=== PATIENT | male | born 1950 | race Caucasian/White ===

== ENCOUNTER 2023-01-30 11:27 | Outpatient (CLI) | payer BC, SELFPAY ==
--- NOTE | 2023-01-30 11:45 | XR_ITS ---
WS: [id number] Chest 2 views, 01/30/2023 Clinical Data: hypoxia, productive cough, former smoker Comparison: None. Findings: No nodules, masses or effusions are seen. Both harry are prominent probably from pulmonary a rtery enlargement. The heart is normal. The pulmonary vascularity is not increased. No pneumonia or p neumothorax is seen. The aortic arch and descending thoracic aorta show calcification and mild tortuo sity. The diaphragms are flattened. XR/XR chest 2V* [id number] Impression: 1. Atherosclerosis and hyperinflation. 2. Probable pulmonary artery hypertension.
== END 2023-01-30 11:28 | disposition home or self-care (01) ==
PROVIDERS: PCP Family Medicine; Visit Provider Family Medicine
DX: R09.02 Hypoxemia (principal); R05.9 Cough, unspecified; Z87.891 Personal history of nicotine dependence; R91.8 Other nonspecific abnormal finding of lung field; I70.90 Unspecified atherosclerosis
CPT/HCPCS: 71046; 80053; 80061; 85025; J7613

== ENCOUNTER 2024-03-07 06:00 | Outpatient (CLI) | payer BC, SELFPAY | END 2024-03-07 06:01 | disposition home or self-care (01) | LOC: RAD 05-24 10:17 | PROVIDERS: PCP Family Medicine; Visit Provider Family Medicine | DX: Z00.00 Encounter for general adult medical examination without abnormal findings (principal); Z13.1 Encounter for screening for diabetes mellitus; Z13.6 Encounter for screening for cardiovascular disorders; R94.31 Abnormal electrocardiogram [ECG] [EKG] | CPT/HCPCS: 80053; 80061; 85007; 85025; 93005 ==

== ENCOUNTER → 2024-04-08 10:08 | Outpatient (BNVA) | payer BC, SELFPAY | PROVIDERS: PCP Family Medicine; Visit Provider Family Medicine | DX: D72.829 Elevated white blood cell count, unspecified (principal) | CPT/HCPCS: 80503; 85007; 85025 ==

== ENCOUNTER 2024-04-27 08:40 | Outpatient (CLI) | payer BC, SELFPAY ==
--- NOTE | 2024-04-27 09:00 | CT_ITS ---
WS: [id number] LDCT LUNG CANCER SCREENING HISTORY: lung cancer screening TECHNIQUE: Axial imaging performed from the apices to 1 cm below the costophrenic angles. Coronal and sagittal reformats are submitted with axial MIP series. All CT scans at [facility] use at least one of these dose optimization techniques: automated exposure control; mA and/or kV adjustment per patient size (includes targeted exams where dose is matched to clinical indication); or iterativ e reconstruction. DLP: 73.99 mGy.cm DIvol: Mean CTDIvol: 1.40 (mGy) COMPARISON: None available. Diagnostic quality: Satisfactory Lungs: Lungs are markedly hyperinflated with centrilobular emphysema. Numerous bilateral, lower lobe noncalcified pulmonary nodules are identified. These nodules are subcentimeter with the largest measu ring 6 mm at the RIGHT lung base, image 205 of series 4. There is an additional short RIGHT perifissu ral nodule. Heart: Normal size heart with no pericardial effusion.. Other findings: Pulmonary artery is dilated to 4.3 cm. Mild atherosclerosis aorta. Heavy calcificatio ns noted throughout the coronary arteries. No mediastinal or hilar adenopathy identified. The hilar r egions are poorly visualized without IV contrast. Small hiatal hernia. Bilateral adrenal adenomas. Th e largest on the RIGHT measures 2.2 x 1.7 cm. Visualized pancreas is mildly atrophic. No destructive bone lesions. CT/CT lung screening [id number] IMPRESSION: LUNG-RADS: 3S-Probably Benign with Significant Findings FOLLOW UP: 6 Month LDCT OTHER FINDINGS (S MODIFIER): Pulmonary hypertension. Extensive coronary artery calcifications. Bilateral adrenal adenomas.
--- NOTE | 2024-04-27 10:00 | USCV_ITS ---
Derrell Casas Age: 73 Gender: M : 1950 Exam Date: 04/27/2024 08:59 Ordering Phys: Julianne Kemp MD Technologist: BM [place] [facility] [place] HISTORY: Diameter (cm) AP x Transverse x Length Velocity (cm/s) Waveform Prox Aorta: 1.50 x 1.80 x 49.20 Triphasic Mid Aorta: 1.70 x 1.70 x 52.70 Triphasic Distal Aorta: 1.30 x 1.40 x 50.10 Triphasic Right Iliac Prox: 0.72 x 0.95 x 201.80 Triphasic Left Iliac Prox: 0.73 x 0.98 x 180.30 Triphasic Stent Prox Landing x x Aneurysmal Sac Max x x Lt Lat Sac Dim Rt Lat Sac Dim Stent Dist Landing x x Right Iliac Stent x x Left Iliac Stent x x Right Renal Art Left Renal Art FINDINGS: CONCLUSIONS No evidence of AAA or common iliac aneurysm Mild atheromatous disease Lorenzo Brunson MD (Electronically Signed) Final Date: 27 April 2024 10:23 S
== END 2024-04-27 08:41 | disposition home or self-care (01) ==
LOC: RAD 08:40
PROVIDERS: PCP Family Medicine; Visit Provider Family Medicine
DX: Z00.00 Encounter for general adult medical examination without abnormal findings (principal); Z87.891 Personal history of nicotine dependence; Z13.6 Encounter for screening for cardiovascular disorders; I70.90 Unspecified atherosclerosis; Z12.2 Encounter for screening for malignant neoplasm of respiratory organs; J43.2 Centrilobular emphysema; K44.9 Diaphragmatic hernia without obstruction or gangrene; I70.0 Atherosclerosis of aorta; D35.02 Benign neoplasm of left adrenal gland; D35.01 Benign neoplasm of right adrenal gland
CPT/HCPCS: 71271; 76706

== ENCOUNTER → 2024-05-18 11:18 | Outpatient (BNVA) | payer BC, SELFPAY | PROVIDERS: PCP Family Medicine; Visit Provider Family Medicine | DX: D72.829 Elevated white blood cell count, unspecified (principal) | CPT/HCPCS: 85007; 85025 ==

== ENCOUNTER 2024-06-30 07:24 | Oncology outpatient (recurring) (ONCR) | payer BC, SELFPAY ==
[2024-06-30 08:00] LABS: Basophils # 0.1 10^3/uL (0.0-0.1); Basophils % 0.6 %; Eosinophils # 0.1 10^3/uL (0.0-0.8); Eosinophils % 0.7 %; Hematocrit 51.4 % (37-53); Lymphocytes # 12.2 10^3/uL (0.8-4.8); Lymphocytes % 62.4 %; Mean Corpuscular HGB Conc 31.5 g/dL (30-55); Mean Corpuscular Volume 92.1 fl (82-101); Mean Platelet Volume 9.7 fL (7.4-10.4); Monocytes # 0.8 10^3/uL (0.2-0.9); Monocytes % 3.8 %; Neutrophils # 6.28 10^3/uL (1.8-7.7); Neutrophils % 31.9 %; Nucleated Red Blood Cells % 0 %; Platelet Count 161 10^3/cmm (157-399); Red Blood Count 5.58 10^6/uL (3.85-5.65); Red Cell Distribution Width 15.9 % (12.1-15.1); White Blood Count 19.62 10^3/uL (3.29-11.43)
[2024-06-30 08:28] LABS: Alanine Aminotransferase 11 U/L (0-41); Albumin Level 4.1 g/dL (3.5-5.2); Alkaline Phosphatase 88 U/L (40-130); Anion Gap 12.4 (5-19); Aspartate Amino Transferase 17 U/L (0-40); Blood Urea Nitrogen 18 mg/dL (8-23); Calcium 8.7 mg/dL (8.5-10.5); Carbon Dioxide 31 mmol/L (22-29); Chloride 101 mmol/L (98-107); Creatinine Clr Calc Pharmacy 82.9597; Globulin 2.4 g/dL (1.3-4.6); Glucose 116 mg/dL (65-115); Osmolality Calculated 293 mOsm/kg (285-295); Potassium 4.4 mmol/L (3.5-5.1); Sodium 140 mmol/L (136-145); Total Bilirubin 0.5 mg/dL (0.15-1.2); Total Protein 6.5 g/dL (6.6-8.7)
[2024-06-30 08:40] LABS: Erythrocyte Sedimentation Rate 8 mm/hr (0-10)
[2024-06-30 08:49] LABS: Lactate Dehydrogenase 195 U/L (135-225)
[2024-07-01 13:35] LABS: Leukemia Profile (BBPL) See Report
== END 2024-07-14 23:59 | disposition home or self-care (01) ==
PROVIDERS: PCP Family Medicine; Visit Provider Internal Medicine Hematology & Oncology
DX: D72.823 Leukemoid reaction (principal); D72.829 Elevated white blood cell count, unspecified; L02.224 Furuncle of groin; Z87.891 Personal history of nicotine dependence
CPT/HCPCS: 36415; 80053; 83615; 85025; 85651; 87070; 87075; 87205; 88184; 88185

== ENCOUNTER 2024-07-29 08:53 | Outpatient (CLI) | payer MEDICARE, SELFPAY ==
--- NOTE | 2024-07-29 08:56 | CT_ITS ---
WS: [id number] CT NECK WITH CONTRAST HISTORY: LOCALIZED ENLARGED LYMPH NODES TECHNIQUE: Contiguous 2 mm axial images are performed through the neck with intravenous contrast. Sag ittal and coronal reformats are also submitted. All CT scans at [facility] use at least one o f these dose optimization techniques: automated exposure control; mA and/or kV adjustment per patient size (includes targeted exams where dose is matched to clinical indication); or iterative reconstruc tion. CONTRAST: CONTRAST: Omnipaque 350; 100 mL IV. DLP: 280.90 mGy.cm COMPARISON: None available. Nasopharynx, oropharynx, hypopharynx and larynx are unremarkable. No soft tissue masses or abnormal e nhancement. Torus tubarius and fossa of Rosenmuller and parapharyngeal fat are normal. Small bilateral cervical chain lymph nodes are identified. These lymph nodes are normal size and shap e and enhancement. Thyroid gland and salivary glands are normally enhancing with no masses. No osseous abnormalities. Visualized portions of the skull base demonstrate no abnormalities. Orbits and globes are within norm al limits. No soft tissue masses. Visualized paranasal sinuses and mastoid air cells are normal. Lung apices are hyperexpanded with emphysema. Mild atherosclerosis aorta. Atherosclerotic plaque in t he cervical carotid arteries with a greater distribution through the cavernous carotid arteries, LEFT greater than RIGHT. CT/CT neck w con* [id number] IMPRESSION: 1. No cervical chain lymphadenopathy. There are small bilateral cervical chain lymph nodes which appear normal. 2. No neck mass.
[2024-07-29] MEDS: iohexol 350 mg/mL 500 mL Btl (per mL) IV (09:23)
== END 2024-07-29 08:54 | disposition home or self-care (01) ==
LOC: RAD 08:57
PROVIDERS: PCP Family Medicine; Visit Provider Dermatology
DX: L30.9 Dermatitis, unspecified (principal); R59.0 Localized enlarged lymph nodes
CPT/HCPCS: 70491

== ENCOUNTER 2024-08-10 11:50 | Oncology outpatient (recurring) (ONCR) | payer MEDICARE, SELFPAY ==
[2024-08-10 12:21] LABS: Basophils # 0.1 10^3/uL (0.0-0.1); Basophils % 0.5 %; Eosinophils # 0.1 10^3/uL (0.0-0.8); Eosinophils % 0.4 %; Lymphocytes # 11.2 10^3/uL (0.8-4.8); Lymphocytes % 56.5 %; Mean Corpuscular Hemoglobin 29.3 pg (27-33); Mean Corpuscular Volume 91.4 fl (82-101); Mean Platelet Volume 9.4 fL (7.4-10.4); Monocytes # 0.8 10^3/uL (0.2-0.9); Monocytes % 3.9 %; Neutrophils # 7.59 10^3/uL (1.8-7.7); Neutrophils % 38.1 %; Nucleated Red Blood Cells % 0 %; Platelet Count 160 10^3/cmm (157-399); Red Blood Count 5.47 10^6/uL (3.85-5.65); Red Cell Distribution Width 15.2 % (12.1-15.1)
[2024-08-10 12:47] LABS: Alanine Aminotransferase 12 U/L (0-41); Albumin Level 4.2 g/dL (3.5-5.2); Alkaline Phosphatase 86 U/L (40-130); Anion Gap 11.6 (5-19); Aspartate Amino Transferase 17 U/L (0-40); Blood Urea Nitrogen 18 mg/dL (8-23); Calcium 9.6 mg/dL (8.5-10.5); Carbon Dioxide 31 mmol/L (22-29); Chloride 100 mmol/L (98-107); Creatinine Clr Calc Pharmacy 93.5472; Globulin 2.1 g/dL (1.3-4.6); Glucose 98 mg/dL (65-115); Osmolality Calculated 288 mOsm/kg (285-295); Potassium 4.6 mmol/L (3.5-5.1); Sodium 138 mmol/L (136-145); Total Bilirubin 0.5 mg/dL (0.15-1.2); Total Protein 6.3 g/dL (6.6-8.7)
== END 2024-08-13 23:59 | disposition home or self-care (01) ==
LOC: ONCMED 11:51
PROVIDERS: Nurse Practitioner; PCP Family Medicine; Visit Provider Internal Medicine
DX: D72.823 Leukemoid reaction (principal); D72.829 Elevated white blood cell count, unspecified; L02.224 Furuncle of groin; Z87.891 Personal history of nicotine dependence
CPT/HCPCS: 36415; 80053; 85025; 99215

== ENCOUNTER 2024-08-25 15:18 | Outpatient (CLI) | payer MEDICARE, SELFPAY ==
--- NOTE | 2024-08-25 15:25 | CTR_ITS ---
PROCEDURE INFORMATION: Exam: CT Chest With Contrast; Diagnostic Exam date and time: 08/25/2024 4:19 PM Age: 74 years old Clinical indication: Condition or disease; Other: Cll; Additional info: Leucocytosis, cll TECHNIQUE: Imaging protocol: Diagnostic computed tomography of the chest with contrast. Radiation optimization: All CT scans at this facility use at least one of these dose optimization techniques: automated exposure control; mA and/or kV adjustment per patient size (includes targeted exams where dose is matched to clinical indication); or iterative reconstruction. Contrast material: OMNI 350; Contrast volume: 100 ml; Contrast route: INTRAVENOUS (IV); COMPARISON: CT lung screening [id number] 04/27/2024 8:51 AM RADIATION DOSE METRICS: Total DLP (mGy-cm): 1001.08 FINDINGS: Lungs: COPD changes. Left upper lobe central inferior segment granuloma. A few scattered regions of pleural-parenchymal nodularity is noted at the lung bases which have not significantly changed from cross-sectional imaging performed on 04/27/2024. Pleural spaces: Unremarkable. No pneumothorax. No pleural effusion. Heart: Unremarkable. No cardiomegaly. No pericardial effusion. Coronary arteries: Heavy coronary calcified atherosclerotic disease. Lymph nodes: Left hilar calcified node. Vasculature: Moderate calcified and noncalcified atherosclerotic disease of the visualized thoracic aorta extending into the major thoracic branches. Main pulmonary artery measures up to 3.8 cm in cross-sectional diameter. Bones/joints: Diffuse degenerative change of the visualized osseous structures. Prominent Schmorl's node formation versus compression deformity of the superior endplate at T10, unchanged from 04/27/2024. Soft tissues: Bilateral gynecomastia. Nondescript cutaneous based soft tissue nodule is seen in the midline upper back (series 4, image 26), measuring about 18 x 12 mm, unchanged from 04/27/2024. PROCEDURE INFORMATION: Exam: CT Abdomen And Pelvis With Contrast Exam date and time: 08/25/2024 4:19 PM Age: 74 years old Clinical indication: Condition or disease; Other: Cll; Additional info: Leucocytosis, cll TECHNIQUE: Imaging protocol: Computed tomography of the abdomen and pelvis with contrast. Radiation optimization: All CT scans at this facility use at least one of these dose optimization techniques: automated exposure control; mA and/or kV adjustment per patient size (includes targeted exams where dose is matched to clinical indication); or iterative reconstruction. Contrast material: OMNI 350; Contrast volume: 100 ml; Contrast route: INTRAVENOUS (IV); COMPARISON: CT lung screening [id number] 04/27/2024 8:51 AM RADIATION DOSE METRICS: Total DLP (mGy-cm): 1001.08 FINDINGS: Liver: Left subcentimeter hepatic lobe hypodensity too small to characterize by modality, statistically likely to represent benign findings (series 6, image 10). Gallbladder and biliary ducts: Gallbladder is distended. Pancreas: Normal. No ductal dilation. Spleen: Few splenic hypodensities are seen. Adrenal glands: Normal. No mass. Kidneys and ureters: Vascular calcification is noted of the right renal pelvis. Stomach and bowel: Mild colonic stool burden. Appendix: No evidence of appendicitis. Intraperitoneal space: Unremarkable. No free air. No significant fluid collection. Vasculature: Peripheral arterial vascular disease. Heavy atherosclerotic disease of the abdominal aorta extending into the superior mesenteric artery and iliac system bilaterally without significant stenosis. Lymph nodes: Unremarkable. No enlarged lymph nodes. Urinary bladder: Unremarkable as visualized. Reproductive: Nodular hypertrophy of the prostate gland with central dystrophic calcifications. Bones/joints: Unremarkable. No acute fracture. Soft tissues: Small fat containing umbilical hernia. CT/CT chest abdpel w/*[id number] IMPRESSION: 1. No evidence for intrathoracic malignancy or metastatic disease. 2. Stable findings of COPD with basilar pleural-parenchymal nodularity which is unchanged from 04/27/2024. 3. Findings which can be seen in pulmonary arterial hypertension, correlate clinically. IMPRESSION: 1. Nondescript splenic hypodensities which can be seen in the setting of hematologic malignancies, however these lesions are nonspecific. Recommend abdominal MRI with multiple phases of pre and postcontrast for definitive assessment. Alternatively if there are outside images for comparison and lesions demonstrates reasonably prolonged stability, no further workup. 2. Otherwise, no evidence for intra-abdominal metastatic or primary disease.
[2024-08-25] MEDS: iohexol 350 mg/mL 500 mL Btl (per mL) PO (16:27)
[2024-08-25] MEDS: iohexol 350 mg/mL 500 mL Btl (per mL) IV (16:27)
== END 2024-08-25 15:19 | disposition home or self-care (01) ==
LOC: RAD 15:19
PROVIDERS: PCP Family Medicine; Visit Provider Nurse Practitioner
DX: D72.823 Leukemoid reaction (principal); J44.9 Chronic obstructive pulmonary disease, unspecified; I25.84 Coronary atherosclerosis due to calcified coronary lesion; I70.0 Atherosclerosis of aorta; N20.0 Calculus of kidney; N40.0 Benign prostatic hyperplasia without lower urinary tract symptoms
CPT/HCPCS: 71260; 74177

== ENCOUNTER 2024-08-30 14:18 | Oncology outpatient (recurring) (ONCR) | payer MEDICARE, SELFPAY ==
[2024-08-30 15:07] LABS: Basophils # 0.1 10^3/uL (0.0-0.1); Basophils % 0.5 %; Eosinophils # 0.1 10^3/uL (0.0-0.8); Eosinophils % 0.6 %; Hematocrit 49.6 % (37-53); Lymphocytes # 11.3 10^3/uL (0.8-4.8); Mean Corpuscular HGB Conc 31.5 g/dL (30-55); Mean Corpuscular Hemoglobin 29.1 pg (27-33); Mean Corpuscular Volume 92.4 fl (82-101); Monocytes # 0.9 10^3/uL (0.2-0.9); Monocytes % 4.8 %; Neutrophils # 6.94 10^3/uL (1.8-7.7); Neutrophils % 35.5 %; Nucleated Red Blood Cells % 0 %; Platelet Count 164 10^3/cmm (157-399); Red Blood Count 5.37 10^6/uL (3.85-5.65); Red Cell Distribution Width 14.9 % (12.1-15.1); White Blood Count 19.51 10^3/uL (3.29-11.43)
[2024-08-30 15:11] LABS: Reticulocyte % 1.7 % (0.5-2.0)
[2024-08-30 15:25] LABS: Alanine Aminotransferase 9 U/L (0-41); Albumin Level 3.9 g/dL (3.5-5.2); Alkaline Phosphatase 88 U/L (40-130); Anion Gap 14.7 (5-19); Aspartate Amino Transferase 13 U/L (0-40); Blood Urea Nitrogen 18 mg/dL (8-23); Calcium 9.3 mg/dL (8.5-10.5); Carbon Dioxide 32 mmol/L (22-29); Chloride 104 mmol/L (98-107); Globulin 2.8 g/dL (1.3-4.6); Glucose 81 mg/dL (65-115); Lactate Dehydrogenase 184 U/L (135-225); Osmolality Calculated 305 mOsm/kg (285-295); Phosphorus 2.3 mg/dL (2.5-4.5); Potassium 3.7 mmol/L (3.5-5.1); Sodium 147 mmol/L (136-145); Total Bilirubin 0.4 mg/dL (0.15-1.2); Total Protein 6.7 g/dL (6.6-8.7); Uric Acid 5.1 mg/dL (3.4-7.0)
[2024-08-30 16:12] LABS: Immunoglobulin IGA 290 mg/dL (70-400); Immunoglobulin IGG 680 mg/dL (700-1600); Immunoglobulin IGM 57 mg/dL (40-230)
[2024-08-31 07:13] LABS: Beta-2-Microglobulin 1.82 mg/L (< OR = 2.51)
[2024-09-06 10:39] LABS: CLL Prognostic Panel (BBPL) See Report
== END 2024-09-13 23:59 | disposition home or self-care (01) ==
LOC: ONCMED 14:19
PROVIDERS: Nurse Practitioner; PCP Family Medicine; Visit Provider Internal Medicine
DX: D72.823 Leukemoid reaction (principal)
CPT/HCPCS: 36415; 80053; 81263; 82232; 82784; 83010; 83615; 84100; 84550; 85025; 85045; 86880; 88185; 88264; 88271; 88367; 88374

== ENCOUNTER 2024-09-20 14:29 | Oncology outpatient (recurring) (ONCR) | payer MEDICARE, SELFPAY | END 2024-10-14 23:59 | disposition home or self-care (01) | PROVIDERS: PCP Family Medicine; Visit Provider Internal Medicine | DX: C91.10 Chronic lymphocytic leukemia of B-cell type not having achieved remission (principal); Z79.899 Other long term (current) drug therapy; Z87.891 Personal history of nicotine dependence | CPT/HCPCS: 99214 ==

== ENCOUNTER → 2024-12-05 12:56 | Outpatient (BNVA) | payer MEDICARE, SELFPAY | PROVIDERS: PCP Family Medicine; Visit Provider Dermatology | DX: D48.5 Neoplasm of uncertain behavior of skin (principal); R23.8 Other skin changes; R20.8 Other disturbances of skin sensation; L53.8 Other specified erythematous conditions | CPT/HCPCS: 11404; 12032 ==

== ENCOUNTER 2025-01-02 12:44 | Oncology outpatient (recurring) (ONCR) | payer MEDICARE, SELFPAY ==
[2025-01-02 13:05] LABS: Basophils # 0.1 10^3/uL (0.0-0.1); Basophils % 0.5 %; Eosinophils # 0.1 10^3/uL (0.0-0.8); Eosinophils % 0.5 %; Hematocrit 55.1 % (37-53); Lymphocytes # 14.9 10^3/uL (0.8-4.8); Lymphocytes % 58.4 %; Mean Corpuscular HGB Conc 31.2 g/dL (30-55); Mean Corpuscular Hemoglobin 28.2 pg (27-33); Mean Corpuscular Volume 90.5 fl (82-101); Mean Platelet Volume 9.9 fL (7.4-10.4); Monocytes # 0.8 10^3/uL (0.2-0.9); Monocytes % 3.1 %; Neutrophils # 9.42 10^3/uL (1.8-7.7); Neutrophils % 37.1 %; Nucleated Red Blood Cells % 0 %; Platelet Count 185 10^3/cmm (157-399); Red Blood Count 6.09 10^6/uL (3.85-5.65); White Blood Count 25.42 10^3/uL (3.29-11.43)
[2025-01-02 14:14] LABS: Alanine Aminotransferase 8 U/L (0-41); Albumin Level 4.1 g/dL (3.5-5.2); Alkaline Phosphatase 116 U/L (40-130); Anion Gap 12.7 (5-19); Aspartate Amino Transferase 12 U/L (0-40); Blood Urea Nitrogen 15 mg/dL (8-23); Calcium 9.6 mg/dL (8.5-10.5); Carbon Dioxide 31 mmol/L (22-29); Chloride 101 mmol/L (98-107); Creatinine Clr Calc Pharmacy 89.6212; Globulin 2.7 g/dL (1.3-4.6); Glucose 103 mg/dL (65-115); Osmolality Calculated 291 mOsm/kg (285-295); Potassium 4.7 mmol/L (3.5-5.1); Sodium 140 mmol/L (136-145); Total Bilirubin 0.5 mg/dL (0.15-1.2); Total Protein 6.8 g/dL (6.6-8.7)
== END 2025-01-11 23:59 | disposition home or self-care (01) ==
PROVIDERS: Internal Medicine Medical Oncology; Nurse Practitioner Family; PCP Family Medicine; Visit Provider Internal Medicine
DX: C91.10 Chronic lymphocytic leukemia of B-cell type not having achieved remission (principal); R03.0 Elevated blood-pressure reading, without diagnosis of hypertension; D75.1 Secondary polycythemia; R63.4 Abnormal weight loss; Z68.25 Body mass index [BMI] 25.0-25.9, adult; J44.9 Chronic obstructive pulmonary disease, unspecified; D72.829 Elevated white blood cell count, unspecified; F17.210 Nicotine dependence, cigarettes, uncomplicated; Z71.6 Tobacco abuse counseling
CPT/HCPCS: 36415; 80053; 85025; 99214

== ENCOUNTER 2025-01-27 09:22 | Outpatient (CLI) | payer MEDICARE, SELFPAY ==
--- NOTE | 2025-01-27 09:47 | XR_ITS ---
WS: [email or web address] Exam: XR chest 2V* [id number] Date/Time of Exam: 01/27/2025 9:55 AM Reason For Exam: low o2, copd exacerbation Comparison 01/30/2023. Lungs are hyperinflated and clear. Heart size is normal. The mediastinum is normal in contour. No pleural effusions. Enlarged main pulmonary artery suggesting pulmonary hypertension. Bony structures are unremarkable. XR/XR chest 2V* [id number] IMPRESSION: 1. No acute process. Hyperinflation. 2. Large main pulmonary artery suggesting the possibility of pulmonary hyperten karan.
== END 2025-01-27 09:23 | disposition home or self-care (01) ==
LOC: RAD 09:38
PROVIDERS: PCP Family Medicine; Visit Provider Family Medicine
DX: J44.1 Chronic obstructive pulmonary disease with (acute) exacerbation (principal); R91.8 Other nonspecific abnormal finding of lung field; R93.89 Abnormal findings on diagnostic imaging of other specified body structures
CPT/HCPCS: 71046

== ENCOUNTER 2025-02-07 13:47 | Outpatient (CLI) | payer MEDICARE, SELFPAY ==
--- NOTE | 2025-02-07 13:55 | XR_ITS ---
WS: [email or web address] Lumbar spine, 3 views, 02/07/2025 Clinical Data: r/o compression fracture in patient w/ cll chronic steroid Comparison: None. Findings: No or subluxation is seen. There is loss of superior cortical height of the T12, L1, L3, L4 and L5 vertebral bodies which represents minimal compression fractures. The greatest loss of height is 25 to 50% of the T12 vertebral body. There is degenerative disc narrowing at all levels from L1-L2 through L5-S1. There is osteoporosis and osteoarthritis. There is a slight dextroscoliosis. There is facet joint arthritis from L4-L5 through L5-S1. The transverse processes and SI joints are normal. There is calcification of the abdominal aorta wall with atherosclerotic dilatation of 2.8 cm. XR/XR lumbar spine 2-3V* [id number] Impression: 1. Multilevel loss of superior cortical height of thoracic and lumbar vertebral bodies of indeterminate age. 2. Degenerative disc narrowing, osteoporosis, osteoarthritis and dextroscoliosi s.
== END 2025-02-07 13:48 | disposition home or self-care (01) ==
PROVIDERS: PCP Family Medicine; Visit Provider Family Medicine
DX: M51.369 Other intervertebral disc degeneration, lumbar region without mention of lumbar back pain or lower extremity pain (principal); M48.54XA Collapsed vertebra, not elsewhere classified, thoracic region, initial encounter for fracture; M48.56XA Collapsed vertebra, not elsewhere classified, lumbar region, initial encounter for fracture; M81.0 Age-related osteoporosis without current pathological fracture; M47.896 Other spondylosis, lumbar region; M41.86 Other forms of scoliosis, lumbar region; M47.897 Other spondylosis, lumbosacral region; M51.379 Other intervertebral disc degeneration, lumbosacral region without mention of lumbar back pain or lower extremity pain; I70.0 Atherosclerosis of aorta; I77.811 Abdominal aortic ectasia
CPT/HCPCS: 72100

== ENCOUNTER → 2025-02-14 13:46 | Outpatient (BNVA) | payer MEDICARE, SELFPAY | PROVIDERS: PCP Family Medicine; Visit Provider Orthopaedic Surgery | DX: S22.040A Wedge compression fracture of fourth thoracic vertebra, initial encounter for closed fracture (principal); M51.369 Other intervertebral disc degeneration, lumbar region without mention of lumbar back pain or lower extremity pain; X58.XXXA Exposure to other specified factors, initial encounter; M54.9 Dorsalgia, unspecified | CPT/HCPCS: 72072; 72110; 99203 ==

== ENCOUNTER 2025-02-15 15:20 | Oncology outpatient (recurring) (ONCR) | payer MEDICARE, SELFPAY ==
--- NOTE | 2025-02-15 16:00 | MR_ITS ---
WS: [id number] MRI LUMBAR SPINE NONCONTRAST HISTORY: Back pain for 3 months. COMPARISON: Radiograph 02/14/2025 TECHNIQUE: Sagittal and axial multisequence imaging is submitted. T10 mild compression deformity along the superior endplate. T12: Anterior wedging with 12% loss of height. Marrow edema along the superior endplate with no retropulsion. L1: 10% loss of height with marrow edema along the superior endplate, no retropulsion. L4: Minimal loss of height, 10% with marrow edema along the superior endplate with no retropulsion. Lumbar alignment is normal. Disc spaces and vertebral body heights are well-preserved. Conus terminates normally at L1. L1-L2: Normal. L2-L3: Mild disc bulging with slight contact on the traversing RIGHT L3 nerve root in the subarticular recess. Very mild RIGHT foraminal stenosis. L3-L4: Diffuse annular disc bulging with osteophytic ridging, ligamentum flavum and facet arthritis. Shallow bilateral foraminal protrusions. Mild central, subarticular recess and moderate LEFT foraminal stenosis with mild RIGHT foraminal stenosis. Fluid in the facet joints. There is significant disc contact on the traversing L4 nerve roots. L4-L5: Diffuse annular disc bulging with a central disc protrusion. Mild osteophytic ridging. Ligamentum flavum and facet arthritis. Disc contacts the traversing L5 nerve roots. Mild bilateral foraminal stenosis. L5-S1: Mild disc bulging. A mild disc encroachment upon the S1 nerve roots. No high-grade stenosis. MR/MR lumbar spine wo con* [id number] IMPRESSION: 1. Marrow edema along the superior endplates of T12 and L1 without retropulsio n consistent with acute to subacute fractures. 2. Additional acute to subacute fracture involving the superior endplate of L4 without retropulsion. Estimated 10% loss of height. 3. L3-4: Mild central, subarticular recess and moderate LEFT foraminal stenosi s and mild RIGHT foraminal stenosis. Disc contacts the traversing L4 nerve root s. 4. L4-5: Mild disc contact on the traversing L5 nerve roots. 5. L5-S1: Minimal disc encroachment upon the S1 nerve roots.
== END 2025-03-13 23:59 | disposition home or self-care (01) ==
LOC: RAD 15:22 → ONCMED 02-16 09:01
PROVIDERS: PCP Family Medicine; Visit Provider Orthopaedic Surgery
DX: C91.10 Chronic lymphocytic leukemia of B-cell type not having achieved remission (principal); R03.0 Elevated blood-pressure reading, without diagnosis of hypertension; D75.1 Secondary polycythemia; R63.4 Abnormal weight loss; Z68.25 Body mass index [BMI] 25.0-25.9, adult; J44.9 Chronic obstructive pulmonary disease, unspecified; D72.829 Elevated white blood cell count, unspecified; F17.210 Nicotine dependence, cigarettes, uncomplicated; Z71.6 Tobacco abuse counseling; Z79.899 Other long term (current) drug therapy; Z87.891 Personal history of nicotine dependence; D72.823 Leukemoid reaction; L02.224 Furuncle of groin; M54.9 Dorsalgia, unspecified
CPT/HCPCS: 72148

== ENCOUNTER → 2025-02-21 14:42 | Outpatient (BNVA) | payer MEDICARE, SELFPAY | PROVIDERS: PCP Family Medicine; Visit Provider Orthopaedic Surgery | DX: M54.50 Low back pain, unspecified (principal); G89.29 Other chronic pain | CPT/HCPCS: 99213 ==

== ENCOUNTER 2025-04-03 12:10 | Oncology outpatient (recurring) (ONCR) | payer MEDICARE, SELFPAY ==
[2025-04-03 12:30] LABS: Hematocrit 50.2 % (37-53); Hemoglobin 16.50 g/dL (11.27-16.99); Mean Corpuscular HGB Conc 32.9 g/dL (30-55); Mean Corpuscular Hemoglobin 29.6 pg (27-33); Mean Corpuscular Volume 90.0 fl (82-101); Nucleated Red Blood Cells % 0.1 %; Platelet Count 177 10^3/cmm (157-399); Red Blood Count 5.58 10^6/uL (3.85-5.65); White Blood Count 24.17 10^3/uL (3.29-11.43)
[2025-04-03 13:01] LABS: Alanine Aminotransferase 11 U/L (0-41); Albumin Level 4.0 g/dL (3.5-5.2); Alkaline Phosphatase 95 U/L (40-130); Anion Gap 16.1 (5-19); Aspartate Amino Transferase 14 U/L (0-40); Blood Urea Nitrogen 14 mg/dL (8-23); Calcium 9.7 mg/dL (8.5-10.5); Carbon Dioxide 28 mmol/L (22-29); Chloride 96 mmol/L (98-107); Creatinine Clr Calc Pharmacy 90.4778; Globulin 2.8 g/dL (1.3-4.6); Glucose 101 mg/dL (65-115); Osmolality Calculated 283 mOsm/kg (285-295); Potassium 4.1 mmol/L (3.5-5.1); Sodium 136 mmol/L (136-145); Total Protein 6.8 g/dL (6.6-8.7)
== END 2025-04-13 23:59 | disposition home or self-care (01) ==
PROVIDERS: Nurse Practitioner Family; PCP Family Medicine; Visit Provider Orthopaedic Surgery
DX: C91.10 Chronic lymphocytic leukemia of B-cell type not having achieved remission (principal); R03.0 Elevated blood-pressure reading, without diagnosis of hypertension; Z79.899 Other long term (current) drug therapy; Z87.891 Personal history of nicotine dependence
CPT/HCPCS: 36415; 80053; 85025; 99213

== ENCOUNTER → 2025-04-06 13:17 | Outpatient (BNVA) | payer MEDICARE, SELFPAY | PROVIDERS: PCP Family Medicine; Visit Provider Orthopaedic Surgery | DX: S32.040D Wedge compression fracture of fourth lumbar vertebra, subsequent encounter for fracture with routine healing (principal); X58.XXXD Exposure to other specified factors, subsequent encounter | CPT/HCPCS: 72110; 99213 ==

== ENCOUNTER → 2025-05-29 08:15 | Outpatient (BNVA) | payer MEDICARE, SELFPAY | PROVIDERS: PCP Family Medicine; Visit Provider Dermatology | DX: L21.8 Other seborrheic dermatitis (principal); L73.2 Hidradenitis suppurativa; D69.2 Other nonthrombocytopenic purpura; L57.0 Actinic keratosis | CPT/HCPCS: 17000; 99214 ==